=== PATIENT | female | born 1995 | race African-American/Black ===

== ENCOUNTER 2021-06-22 00:54 | Emergency (ER) | payer MEDICAID ==
[~2021-06-22] VITALS: Ht 172.7 cm; Wt 100.0 kg
[2021-06-22] MEDS ORDERED: ACETAMINOPHEN 325MG TABLET PO ONE (02:00)
[2021-06-22] MEDS ORDERED: IBUPROFEN 400MG TABLET PO ONE (02:00)
[2021-06-22 02:38] VITALS: BP 138/82
== END 2021-06-22 02:39 | disposition home or self-care (01) ==
LOC: ER 00:54
DX: M25.572 Pain in left ankle and joints of left foot (principal); V43.52XA Car driver injured in collision with other type car in traffic accident, initial encounter; Y93.89 Activity, other specified; Y92.410 Unspecified street and highway as the place of occurrence of the external cause
CPT/HCPCS: 73610; 99283